=== PATIENT | male | born 1980 | race Caucasian/White ===

== ENCOUNTER 2016-07-29 11:17 | Emergency (ER) | payer OTHER ==
--- NOTE | ~2016-07-29 | ER ---
PATIENT'S NAME: MARV PURVIS [facility] AGE: 35 Y [address] ROOM: [place] [id number] LOCATION: [facility] ADMIT DATE: 07/29/2016 ER/Outpatient Report DISCHARGE DATE: 07/29/2016 FAMILY PHYSICIAN: PHYSICIAN, NO ATTENDING PHYSICIAN: Marv Vazquez TIME: Seen at 1115 hours. CHIEF COMPLAINT: Nausea, vomiting, near syncopal episode. HISTORY OF PRESENT ILLNESS: The patient is a 35-year-old male presents with his . The patient has a history of early this morning developing severe nausea, vomiting, diarrhea. The patient also while sitting on the toilet had a near syncopal episode. states that she noticed some jerking in his left arm that maybe lasted for 15 seconds. The patient did not lose consciousness. ALLERGIES: IODINE. HOME MEDICATIONS: None. PREVIOUS MEDICAL HISTORY: Unremarkable for diabetes or any chronic diseases. SURGERIES: None. SOCIAL HISTORY: Nonsmoker. Denies any alcohol. REVIEW OF SYSTEMS: GENERAL HEALTH: Had been good up until early this morning when he developed the nausea, vomiting and diarrhea. He denies fever or chills. HEENT: No complaints of headache or sore throat. RESPIRATORY: No shortness of breath or cough. CARDIOVASCULAR: No chest pain. No palpitations. GASTROINTESTINAL: Includes sudden onset of nausea, vomiting and diarrhea. Did not complain of any severe abdominal pain. GENITOURINARY: Denies any dark urine or dysuria. SKIN: No recent rash. PATIENT'S NAME: MARV PURVIS [facility] AGE: 35 Y [address] ROOM: [place] [id number] LOCATION: [facility] ADMIT DATE: 07/29/2016 ER/Outpatient Report DISCHARGE DATE: 07/29/2016 FAMILY PHYSICIAN: PHYSICIAN, NO ATTENDING PHYSICIAN: Marv Vazquez PHYSICAL EXAMINATION: VITAL SIGNS: He had a temperature at 99.4, respiratory rate 20, his initial pulse was 122 on discharge it was down to 111. GENERAL APPEARANCE: He appeared somewhat pale, but alert and well nourished. EYES: PERRLA. No icterus. NOSE: Septum midline. MOUTH: Tongue was slightly dry. Teeth in good repair. Posterior pharynx was clear. NECK: Supple. No adenopathy. LUNGS: Sounded clear peripherally. HEART: Slight tachycardia. No murmurs. ABDOMEN: Soft. There is no guarding. No organomegaly. Bowel sounds are present. GENITOURINARY: Normal. SKIN: Warm and dry. No eruptions. LABORATORY DATA: CBC: White count was elevated at 15.2. His ANC was 14. His hemoglobin 16.3. CMS: Glucose 137. ASSESSMENT: Acute nausea, vomiting and diarrhea. PLAN: The patient was given a liter of normal saline, 4 of Zofran. The patient felt much better after the fluids. The patient discharged home with the recommendations of clear liquids for the rest of the afternoon, Gatorade, BRAT diet; could be started by evening. Recommend follow up with his primary care within the next 24-48 hours if symptoms do not continue to improve. Handout was given on diarrhea and vomiting. KIT VYAS FOR MD SCHUYLER MILLAN/martin /[id number] d: 07/30/16 0125 t: 08/21/16 0603, OUTPATIENT REPORT
[2016-07-29 12:13] LABS: HEMATOCRIT 48.6 % (37.0-53.0); HEMOGLOBIN 16.3 g/dL (12.0-17.0); MCH 29.6 pg (27.0-34.0); MCHC 33.5 gm/dL (32.0-36.5); MCV 88.2 fl (83.0-98.0); MPV 10.1 fl (9.4-12.4); PLATELET COUNT 223 K/uL (150-450); RBC 5.51 M/uL (4.00-6.00); RDW-CV 12.7 % (11.9-14.6); WBC 15.2 K/uL (4.0-11.0)
[2016-07-29 12:32] LABS: ALBUMIN 4.5 gm/dL (3.5-5.0); ALK PHOS 79 IU/L (33-138); ALT 43 IU/L (12-78); ANION GAP 16.8 (10.0-19.0); AST 21 IU/L (10-40); BLOOD UREA NITROGEN 21 mg/dL (6-24); CALCIUM 8.9 mg/dL (8.5-10.5); CHLORIDE 110 mMol/L (96-110); CO2 20 mMol/L (22-32); CREATININE 1.2 mg/dL (0.6-1.3); ESTIMATED GFR (MDRD EQUATION) > 60; POTASSIUM 3.8 mMol/L (3.7-5.1); SODIUM 143 mMol/L (135-145); TOTAL BILIRUBIN 0.8 mg/dL (0.0-1.5); TOTAL PROTEIN 7.9 g/dL (6.0-8.4)
[2016-07-29 12:47] LABS: BANDED NEUTROPHIL # 1.2 K/uL (0.0-0.1); BANDED NEUTROPHILS % 8 %; LYMPHOCYTE # 0.5 K/uL (0.8-4.0); LYMPHOCYTE % 3 %; MONOCYTE # 0.8 K/uL (0.0-1.0); SEGMENTED NEUTROPHIL # 12.8 K/uL (1.4-9.0); SEGMENTED NEUTROPHIL % 84 %
== END 2016-07-29 13:05 | disposition disaster alternative care site (69) ==
LOC: GMED 11:17
PROVIDERS: Physician Assistant Medical
DX: R11.2 Nausea with vomiting, unspecified (principal); R19.7 Diarrhea, unspecified
CPT/HCPCS: J2405; J7030